=== PATIENT | female | born 1945 | race Caucasian/White ===

== ENCOUNTER 2025-04-12 07:18 | Outpatient (CLI) | payer MEDICARE, MEDICAID ==
[2025-04-12 10:34] LABS: Estimated GFR - POC 58.0
== END 2025-04-12 07:19 | disposition home or self-care (01) ==
LOC: CSHCT 07:18
PROVIDERS: ATTEND Family Medicine
DX: R10.9 Unspecified abdominal pain (principal); K57.32 Diverticulitis of large intestine without perforation or abscess without bleeding
CPT/HCPCS: 36415; 74177; 82565